=== PATIENT | male | born 1975 | race Caucasian/White ===

== ENCOUNTER 2016-05-21 21:57 | Emergency (ER) | payer MEDICAID, OTHER ==
[~2016-05-21] VITALS: Ht 157.5 cm; Wt 81.5 kg
[2016-05-21 22:00] VITALS: Ht 157.5 cm; Wt 81.5 kg
--- NOTE | 2016-05-21 22:25 | ERA ---
ER Documentation Chief Complaint Date/Time DATE: 05/21/16 TIME: 22:24 Chief Complaint AP Right side x2 days, denies N/V and diarrhea HPI The patient is a 41-year-old male, presenting to the ER because of right-sided abdominal pain intermittently for the last 2 days, denies any abdominal pain now. The pain is worse with moving and twisting. He denies fever, chills, neck pain, chest pain, vomiting, dysuria, diarrhea, constipation. He does not smoke, drinks socially, denies illicit drug Past medical history: Gastritis Past surgical history: None ROS All systems reviewed and are negative except as per history of present illness. Medications Home Meds Active Scripts Ibuprofen* (Motrin*) 600 Mg Tab, 600 MG PO Q6H Y for PAIN AND OR ELEVATED TEMP, #20 TAB Prov:RANDOLPH WOLFF MD 05/21/16 Allergies Allergies: Coded Allergies: No Known Allergy (Unverified , 05/21/16) Physical Exam Vitals Vital Signs Date Time Temp Pulse Resp B/P Pulse Ox O2 Delivery O2 Flow Rate FiO2 05/21/16 23:55 97.3 68 110/66 99 Room Air 05/21/16 22:00 98.6 98 20 143/75 100 Physical Exam Const: No acute distress. Head: Atraumatic. Eyes: Normal Conjunctiva. ENT: Normal External Ears, Nose and Mouth. Neck: Full range of motion. No meningismus. Resp: Clear to auscultation bilaterally. Cardio: Regular rate and rhythm, no murmurs. Abd: Soft, non distended, normal bowel sounds, non tender. No right lower quadrant, right upper quadrant, epigastric, CVA tenderness Skin: No petechiae or rashes. Back: No midline or flank tenderness. Ext: No cyanosis, or edema. Neur: Awake and alert. No focal deficit Psych: Normal Mood and Affect. Result Diagram: 05/21/16223905/21/162239 Results 24 hrs Laboratory Tests Test 05/21/16 22:40 05/21/16 22:44 White Blood Count 8.810^3/ul Red Blood Count 5.0410^6/ul Hemoglobin 15.0g/dl Hematocrit 44.4% Mean Corpuscular Volume 88.1fl Mean Corpuscular Hemoglobin 29.8pg Mean Corpuscular Hemoglobin Concent 33.8g/dl Red Cell Distribution Width 12.1% Platelet Count 95716^3/UL Mean Platelet Volume 8.9fl Neutrophils % 56.2% Lymphocytes % 34.8% Monocytes % 7.6% Eosinophils % 1.0% Basophils % 0.2% Nucleated Red Blood Cells % 0.0/100WBC Neutrophils # 4.910^3/ul Lymphocytes # 3.110^3/ul Monocytes # 0.710^3/ul Eosinophils # 0.110^3/ul Basophils # 0.010^3/ul Nucleated Red Blood Cells # 0.010^3/ul Sodium Level 144mmol/L Potassium Level 4.1mmol/L Chloride Level 100mmol/L Carbon Dioxide Level 31mmol/L Anion Gap 17 Blood Urea Nitrogen 18mg/dl Creatinine 1.10mg/dl Glucose Level 98mg/dl Calcium Level 9.4mg/dl Total Bilirubin 0.5mg/dl Direct Bilirubin 0.00mg/dl Indirect Bilirubin 0.5mg/dl Aspartate Amino Transf (AST/SGOT) 30IU/L Alanine Aminotransferase (ALT/SGPT) 31IU/L Alkaline Phosphatase 98IU/L Total Protein 7.6g/dl Albumin 4.2g/dl Globulin 3.40g/dl Albumin/Globulin Ratio 1.23 Lipase 95U/L Bedside Urine pH (LAB) 7.0 Bedside Urine Protein (LAB) Negative Bedside Urine Glucose (UA) Negative Bedside Urine Ketones (LAB) Negative Bedside Urine Blood Negative Bedside Urine Nitrite (LAB) Negative Bedside Urine Leukocyte Esterase (L Negative Current Medications Medications (Trade) Dose Ordered Sig/Rob Route PRN Reason Start Time Stop Time Status Last Admin Dose Admin Ibuprofen (Motrin) 600 mg ONCE ONCE PO 05/21/16 22:30 05/21/16 22:32 DC 05/21/16 22:47 Procedures/MDM MEDICAL MAKING DECISION: The patient is a 41-year-old male, presenting with intermittent abdominal pain of unclear etiology. He was treated with Motrin for pain with good response; the differential diagnoses considered include but are not limited to abdominal wall muscle strain, renal colic, pyelonephritis, cholelithiasis, cholecystitis, cystitis, pancreatitis, hepatitis, gastritis, peptic ulcer disease, gastric ulcer, appendicitis, diverticulitis, cholangitis, choledocholithiasis, partial small bowel obstruction. Departure Diagnosis: Primary Impression: Abdominal pain Condition: Good Comments He was discharged with Motrin I discussed the findings with the patient. I advised the patient to follow-up with the primary physician in about 1-2 days, sooner if needed and return if any concern. The patient's blood pressure was elevated (>120/80) but appears stable without evidence of hypertension emergency or urgency. The patient was counseled about the risks of hypertension and urged to pursue outpatient monitoring and therapy within a week with their primary care physician. RANDOLPH WOLFF MD May 21, 2016 22:24 RANDOLPH WOLFF MD May 21, 2016 22:24
[2016-05-21] MEDS ORDERED: IBUPROFEN 600 MG TAB PO ONE (22:30)
[2016-05-21 22:45] LABS: URINE BLOOD (Dip) POC Negative (NEGATIVE)
[2016-05-21 22:49] LABS: ADD SCAN DIFF NO
[2016-05-21 22:52] LABS: BASOPHILS % 0.2 % (0.0-2.0); EOSINOPHILS # 0.1 10^3/ul (0.0-0.5); HEMATOCRIT 44.4 % (42.0-52.0); LYMPHOCYTES # 3.1 10^3/ul (0.8-2.9); LYMPHOCYTES % 34.8 % (15.0-51.0); MEAN CORPUSCULAR HEMOGLOBIN 29.8 pg (29.0-33.0); MEAN CORPUSCULAR HGB CONC 33.8 g/dl (32.0-37.0); MEAN CORPUSCULAR VOLUME 88.1 fl (82.0-101.0); MEAN PLATELET VOLUME 8.9 fl (7.4-10.4); MONOCYTE # 0.7 10^3/ul (0.3-0.9); MONOCYTES % 7.6 % (0.0-11.0); NEUTROPHIL # 4.9 10^3/ul (1.6-7.5); NEUTROPHILS % 56.2 % (39.0-77.0); PLATELET COUNT 253 10^3/UL (140-415); RED BLOOD COUNT 5.04 10^6/ul (4.70-6.10); RED CELL DISTRIBUTION WIDTH 12.1 % (11.5-14.5); WHITE BLOOD COUNT 8.8 10^3/ul (4.8-10.8)
[2016-05-21 23:00] LABS: ALBUMIN 4.2 g/dl (3.3-4.9); POTASSIUM 4.1 mmol/L (3.5-5.1)
[2016-05-21 23:03] LABS: ALBUMIN/GLOBULIN RATIO 1.23; BILIRUBIN,INDIRECT 0.5 mg/dl (0-1.1); BILIRUBIN,TOTAL 0.5 mg/dl (0.2-1.3); CALCIUM 9.4 mg/dl (8.4-10.2); CREATININE 1.1 mg/dl (0.61-1.24); TOTAL PROTEIN 7.6 g/dl (6.1-8.1)
[2016-05-21] MEDS ORDERED: IBUP-1542 PO (23:47)
[2016-05-21 23:55] VITALS: BP 110/66; PULSE 68; TEMP 97.3
== END 2016-05-21 23:56 | disposition home or self-care (01) ==
LOC: FTE 21:57
DX: R10.9 Unspecified abdominal pain (principal)
CPT/HCPCS: 36415; 80053; 81003; 83690; 85025; Z7502; Z7610; 99283